=== PATIENT | female | born 1970 | race Hispanic/Latino ===

== ENCOUNTER 2024-12-02 17:35 | Emergency (ER) | payer SELFPAY ==
[~2024-12-02] VITALS: Ht 165.1 cm; Wt 72.6 kg
[2024-12-02 18:32] LABS: IMMATURE GRANULOCYTE ABSOLUTE 0.03 K/uL (0-1); NUCLEATED RED BLOOD CELLS 0.0 % (0.0-0.19); PLATELET COUNT (AUTO) 219 K/uL (130-400); RED BLOOD CELL COUNT(AUTO) 4.82 MIL/uL (4.00-5.50); RED CELL DISTRIBUTION WIDTH 12.5 % (11.0-15.5); WHITE BLOOD COUNT (AUTO) 9.1 K/uL (4.8-10.8)
[2024-12-02 18:40] LABS: CREATININE 0.8 mg/dL (0.5-1.0); GLOMERULAR FILTR. RATE CALC 88.0 mL/min (>90); GLUCOSE,RANDOM 395.0 mg/dL (70-105); SODIUM SERUM 133.0 mmol/L (136-145); UREA NITROGEN, BLOOD 16.0 mg/dL (7-18)
--- NOTE | 2024-12-02 18:43 | HMCIMG ---
EXAM: CT Head Without IV contrast. CLINICAL HISTORY: numbness TECHNIQUE: Axial computed tomography images of the head/brain without intravenous contrast. COMPARISON: None provided. FINDINGS: BRAIN: No evidence of acute hemorrhage. No mass lesion. No CT evidence for acute territorial infarct. No midline shift or extra-axial collections. VENTRICLES: No hydrocephalus. ORBITS: The orbits are unremarkable. SINUSES AND MASTOIDS: The paranasal sinuses and mastoid air cells are clear. BONES: No fracture. SOFT TISSUES: Unremarkable. IMPRESSION: No acute intracranial abnormality. /[employer]
--- NOTE | 2024-12-02 22:03 | HMCIMG ---
EXAM: US Right Lower Extremity Nonvascular Soft Tissue Ultrasound CLINICAL HISTORY: Right Lower Extremity (RLE) swelling TECHNIQUE: Real-time ultrasound scan of the right lower extremity with image documentation. Duplex ultrasound of the right lower extremity was performed to evaluate for deep venous thrombosis (DVT). Compression, color Doppler, and spectral Doppler imaging were utilized. COMPARISON: None provided. FINDINGS: SOFT TISSUES: No fluid collection to indicate a drainable abscess. No evidence of deep venous thrombosis in the right lower extremity. IMPRESSION: 1. No evidence of deep venous thrombosis in the right lower extremity. /[place]
--- NOTE | 2024-12-02 22:18 | ERN ---
General Chief Complaint: Numbness Stated Complaint: BILATERAL NUMBNESS/TINGLING TO FEET Time Seen by MD: 17:57 Time Seen by Midlevel: 17:57 Source: patient History of Present Illness Initial Comments Patient is a 54-year-old female with a past medical history of uncontrolled diabetes presenting to the emergency department for evaluation of numbness/tingling/pain to bilateral lower extremities. She also noticed increase swelling to her right lower extremity. She states this has been ongoing for several weeks but has progressively worsened. She reports previously taking insulin that has no longer taking it. She states her has been recently and has not been able to take your medications as prescribed. Allergies: Coded Allergies: No Known Allergies (Unverified Allergy, Unknown, 12/02/24) Past Medical History Past Medical History: Asthma, Diabetes-Type II, High Cholesterol, Hypertension Past Surgical History: Cholecystectomy ROS Dictation CONSTITUTIONAL: Negative except for HPI HEAD/FACE: Negative except for HPI EENT: Negative except for HPI RESPIRATORY: Negative except for HPI GASTROINTESTINAL/ABDOMINAL: Negative except for HPI GENITOURINARY: Negative except for HPI MUSCULOSKELETAL: Negative except for HPI INTEGUMENTARY: Negative except for HPI NEUROLOGICAL/PSYCH: Negative except for HPI HEMATOLOGIC/LYMPHATIC: Negative except for HPI All Systems Negative, Except as noted above. 13 point review of systems assessed and all negative except for above. Physical Exam Physical Exam Dictation Vital Signs reviewed General Appearance: Alert, oriented x 3, no acute distress, well developed, nourished. Head and Face: non-traumatic. Eyes: PERRL, pink conjunctivas, eyelid no trauma, anterior chamber with arcus senilis. Ears: Pinnas intact and no signs of trauma or erythema ear canals clear and no discharge TM no erythema Nose: No discharge, no bleeding. Oropharynx: Mouth normal, tongue pink, pharynx clear,no erythema, tonsils no exudates, no abscesses noted, mucous membrane moist Neck: Supple, non-tender, no thyromegaly, no masses, no JVD, no bruits Breast:Deferred Chest:No tenderness, no crepitus, no paradoxical movement, no retractions Lungs:Clear, well-ventilated, symmetric, no rales, no wheezing, no rhonchi, no stridor, good breath sounds bilaterally Heart: Regular rate, regular rhythm, no murmur, no gallops Vascular: no peripheral edema, Abdomen: Soft, positive bowel sounds, nondistended, no guarding, nontender, no rebound, no masses no hepatomegaly, no splenomegaly, no Khan's sign, no hernias. Rectal: Deferred Genital: Deferred Neurological: Normal speech, motor function intact, sensory function intact Musculoskeletal: Neck nontender, full range of motion, back nontender, full range of motion, Extremities: nontender, full range of motion Skin: Color pink, dry, no turgor, no rash, no lacerations, no abrasions, no contusions. Lymphatic: Deferred Results Laboratory and Microbiology Lab and Micro Result Laboratory Tests Test 12/02/24 18:21 White Blood Count 9.1 K/uL (4.8-10.8) Red Blood Count 4.82 MIL/uL (4.00-5.50) Hemoglobin 14.4 g/dL (12.0-16.0) Hematocrit 40.9 % (36-48) Mean Corpuscular Volume 84.9 fL (79-99) Mean Corpuscular Hemoglobin 29.9 pg (27.0-33.0) Mean Corpuscular Hemoglobin Concent 35.2 g/dL (32.0-36.0) Red Cell Distribution Width 12.5 % (11.0-15.5) Platelet Count 219 K/uL (130-400) Mean Platelet Volume 10.6 fL (7.5-10.5) H Immature Granulocyte % (Auto) 0.3 % (0-1) Neutrophils (%) (Auto) 56.4 % (40.0-77.0) Lymphocytes (%) (Auto) 33.8 % (21.0-51.0) Monocytes (%) (Auto) 7.2 % (3.0-13.0) Eosinophils (%) (Auto) 1.7 % (0.0-8.0) Basophils (%) (Auto) 0.6 % (0.0-5.0) Neutrophils # (Auto) 5.1 K/uL (1.8-7.7) Lymphocytes # (Auto) 3.1 K/uL (1.0-4.8) Monocytes # (Auto) 0.7 K/uL (0.1-1.0) Eosinophils # (Auto) 0.15 K/uL (0.00-0.70) Basophils # (Auto) 0.05 K/uL (0.00-0.20) Absolute Immature Granulocyte (auto 0.03 K/uL (0-1) Nucleated Red Blood Cells 0.0 % (0.0-0.19) Sodium Level 133 mmol/L (136-145) L Potassium Level 4.0 mmol/L (3.5-5.1) Chloride Level 95 mmol/L (101-111) L Carbon Dioxide Level 27 mmol/L (21-32) Blood Urea Nitrogen 16 mg/dL (7-18) Creatinine 0.8 mg/dL (0.5-1.0) Glomerular Filtration Rate Calc 88 mL/min (>90) Random Glucose 395 mg/dL (70-105) H Total Calcium 8.9 mg/dL (8.5-10.1) Magnesium Level 1.90 mg/dL (1.80-2.40) Troponin I High Sensitivity < 4 ng/L (4-50) L Labs Reviewed?: Yes MDM MDM: Differential diagnosis: There are no social concerns with this patient. Prescription drug management Prescriptions will include: Medical management and examination interpretation discussions were had by me with other qualified healthcare professionals as indicated for the patient's care. ED Course Orders Procedure Category Date Status Time Cbc With Differential LAB 12/02/24 Complete 18:03 Basic Metabolic Panel LAB 12/02/24 Complete 18:03 Magnesium LAB 12/02/24 Complete 18:03 Troponin I High LAB 12/02/24 Complete Sensitivity 18:03 Ct Head/Brain W/O CT 12/02/24 Resulted Contrast 18:03 Us Venous Doppler US 12/02/24 Resulted Unilateral 20:54 0.9%Nacl 1000ml (Ns PHA 12/02/24 Complete 1000ml) 21:00 Ketorolac PHA 12/02/24 Complete Tromethamine 15mg/Ml 21:00 Current Medications Medications (Trade) Dose Ordered Sig/Torey Route PRN Reason Start Time Stop Time Status Last Admin Dose Admin Ketorolac Tromethamine (toRADol) 15 mg ONCE ONCE IV 12/02/24 21:00 12/02/24 21:01 DC Sodium Chloride 1,000 ml @ 0 mls/hr ONCE ONCE IV 12/02/24 21:00 12/02/24 21:01 DC Vital Signs Date Time Temp Pulse Resp B/P (MAP) Pulse Ox O2 Delivery O2 Flow Rate FiO2 12/02/24 17:37 98.4 97 16 141/79 96 Room Air 0 DX & DISP Disposition: Discharge Departure Impression: Primary Impression: Paresthesias Additional Impression: Uncontrolled diabetes mellitus with hyperglycemia Condition: Stable Additional Instructions: Your blood work today showed an elevated glucose. You were given IV fluids in the emergency department. Your CT scan of the head is normal. Your ultrasound of your right leg does not show any evidence of a blood clot. Your symptoms are most likely related to uncontrolled diabetes. Please establish with a local primary care doctor so you may restart your diabetic medication. Return to the ER for any new or worsening symptoms I have reviewed the case, and I agree with, Diagnosis and Plan I performed the substantive portion of the visit. I have reviewed and personally made and approve the management plan that is documented in the note by myself or the [facility]. I acknowledge for responsibility for the patient's management plan. WARD HARVEY Dec 02, 2024 22:18
[2024-12-02] MEDS: 0.9%NACL 1000ML 1,000 ML IV ONE (22:34)
[2024-12-02 23:26] VITALS: BP 150/69; PULSE 65; RESP 18; TEMP 98.4; O2SAT 98
== END 2024-12-02 23:28 | disposition home or self-care (01) ==
LOC: EDH 17:35
DX: R20.2 Paresthesia of skin (principal); E11.65 Type 2 diabetes mellitus with hyperglycemia; R20.0 Anesthesia of skin; R60.0 Localized edema; I10 Essential (primary) hypertension; E78.00 Pure hypercholesterolemia, unspecified; J45.909 Unspecified asthma, uncomplicated; Z90.49 Acquired absence of other specified parts of digestive tract
CPT/HCPCS: 99285; 96374; 70450; 93971; 83735; 84484; 80048; 85025; 36415; J1885; J7030